=== PATIENT | female | born 1980 | race African-American/Black ===

== ENCOUNTER 2023-09-25 09:13 | Emergency (ER) | payer SELFPAY ==
[2023-09-25] MEDS ORDERED: Acetaminophen 500 MG TAB ONE (09:38)
[2023-09-25] MEDS ORDERED: Ondansetron ODT 4 MG TAB ONE (09:39)
[2023-09-25] MEDS ORDERED: Ondansetron PF 4 MG/2 ML Vial ONE (10:03)
[2023-09-25] MEDS ORDERED: Ketorolac Tromethamine 30 MG (1 mL) VIAL ONE (10:03)
[2023-09-25] MEDS ORDERED: Morphine 4 MG/ML VIAL ONE (10:03)
[2023-09-25 11:17] LABS: Bacteria/HPF 3+ HPF (None Seen); Bilirubin Negative (Negative); Blood, Urine 1+ (Negative); Clarity Turbid (Clear); Glucose, Urine (Dipstick) Normal (Negative); Ketone, Urine 60 mg/dL (Negative); Lactic Acid 1.1 mmol/L (0.5-2.2); Leukocyte 75 Leu/uL (Negative); Nitrite 2+ (Negative); Protein, Urine (Dipstick) 30 mg/dL (Neg-Trace); Specific Gravity, Urine 1.024 (1.002-1.036); Squamous Epithelial 21-50 HPF (0-3); Urobilinogen 3 mg/dL (Less than 2); pH, Urine 6.5 (5.0-9.0)
[2023-09-25 11:18] LABS: Pregnancy Test - Urine (BHCG) Negative (Negative); Pregu Control Background? CLEAR/WHITE (CLR/WHITE); Pregu Control Bar Appear? YES (CONTROL BAR); Specific Gravity 1.024 (1.002-1.036)
[2023-09-25 11:21] LABS: ALT (SGPT) 11 U/L (8-55); AST (SGOT) 15 U/L (5-34); Albumin 3.5 g/dL (3.5-5.0); Alkaline Phosphatase 92 U/L (40-110); Anion Gap 13 mmol/L (10-20); BUN (Urea Nitrogen) 4 mg/dL (7.0-18.7); Bilirubin, Total 0.4 mg/dL (0.2-1.2); Calc. Creatinine Clearance 0 mL/min (70-130); Calcium 8.8 mg/dL (7.8-10.44); Carbon Dioxide 23 mmol/L (22-29); Chloride 103 mmol/L (98-107); Estimated GFR 97; Globulin 3.5 g/dL (2.4-3.5); Glucose 88 mg/dL (70-105); Lipase 7 U/L (8-78); Sodium 136 mmol/L (136-145)
[2023-09-25 11:47] LABS: Influenza A by NAA Not Detected (NotDetected); Influenza B by NAA Not Detected (NotDetected); SARS-CoV-2 NAA Rapid Test Not Detected (NotDetected)
[2023-09-25] MEDS ORDERED: Potassium Chloride 20 MEQ TAB ONE (13:19)
[2023-09-25 15:08] LABS: Anisocytosis SLIGHT = 6-15 cells HPF (0-5); Band 6 % (5-11); Burr Cells SLIGHT = 2-5 cells HPF (0-1); Hypochromia SLIGHT = 6-15 cells HPF (0-5); Lymphocytes 6 % (21-51); Macrocytosis SLIGHT = 6-15 cells HPF (0-5); Monocytes 2 % (0-10); Neutrophil 86 % (42-75); Nucleated RBC (Manual Ct) 1 % (0); Platelet Adequacy Comment Platelets Normal; Polychromasia MODERATE = 3-4 cells HPF (0-2)
[2023-09-25 15:14] LABS: Hematocrit 30.1 % (36.0-47.0); Hemoglobin 8.8 g/dL (12.0-16.0); Mean Corpuscular HGB CONC 29.2 g/dL (32.0-36.0); Mean Corpuscular Hemoglobin 20.4 pg (27.0-31.0); Mean Corpuscular Volume 69.8 fL (78.0-98.0); Mean Platelet Volume 10.7 fL (7.4-10.4); Platelet Count 376 10x3/uL (130-400); RBC Distribution Width 20.3 % (11.5-14.5); Red Blood Cell (RBC) Count 4.31 mill/uL (4.20-5.40)
[2023-09-25] MEDS ORDERED: Iopamidol-370 76% 500 ML MDV (1 ML CHARGE) ONE (15:46)
== END 2023-09-25 13:44 | disposition home or self-care (01) ==
LOC: ERS 09:13
DX: N39.0 Urinary tract infection, site not specified (principal); E87.6 Hypokalemia; Z87.891 Personal history of nicotine dependence
CPT/HCPCS: 71045; 74177; 80053; 81001; 81025; 83605; 83690; 85025; 96374; 96375; J1885; J2270; J2405; Q0162; Q9967

== ENCOUNTER 2023-09-26 01:41 | Inpatient (IN) | payer SELFPAY ==
[2023-09-26] MEDS ORDERED: Acetaminophen 500 MG TAB ONE (01:52)
[2023-09-26] MEDS ORDERED: Ondansetron PF 4 MG/2 ML Vial ONE (01:52)
[2023-09-26 03:44] LABS: #Basophils Less than 0.03 10x3/uL (0.0-0.2); #Eosinphils Less than 0.03 10x3/uL (0.0-0.7); %Basophils 0.3 % (0.0-1.0); %Lymphocytes 4.6 % (21.0-51.0); %Neutrophils 88.8 % (42.0-75.0); Hematocrit 30.1 % (36.0-47.0); Hemoglobin 8.4 g/dL (12.0-16.0); Mean Corpuscular HGB CONC 27.9 g/dL (32.0-36.0); Mean Corpuscular Hemoglobin 19.6 pg (27.0-31.0); Mean Corpuscular Volume 70.2 fL (78.0-98.0); Mean Platelet Volume 10.1 fL (7.4-10.4); Platelet Count 318 10x3/uL (130-400); RBC Distribution Width 20.9 % (11.5-14.5); Red Blood Cell (RBC) Count 4.29 mill/uL (4.20-5.40)
[2023-09-26] MEDS ORDERED: cefTRIAXone (ROCEPHIN) 2 GM VIAL ONE (03:46)
[2023-09-26] MEDS ORDERED: Sodium Chloride 0.9% 100 ML ONE (03:46)
[2023-09-26 03:48] LABS: ALT (SGPT) 12 U/L (8-55); AST (SGOT) 21 U/L (5-34); Albumin 3.2 g/dL (3.5-5.0); Alkaline Phosphatase 85 U/L (40-110); Anion Gap 13 mmol/L (10-20); BUN (Urea Nitrogen) 4 mg/dL (7.0-18.7); Bilirubin, Total 0.4 mg/dL (0.2-1.2); Calc. Creatinine Clearance 0 mL/min (70-130); Calcium 8.2 mg/dL (7.8-10.44); Carbon Dioxide 18 mmol/L (22-29); Chloride 108 mmol/L (98-107); Estimated GFR 98; Globulin 3.1 g/dL (2.4-3.5); Glucose 112 mg/dL (70-105); Potassium 2.8 mmol/L (3.5-5.1); Protein, Total 6.3 g/dL (6.0-8.3); Sodium 136 mmol/L (136-145)
[2023-09-26] MEDS ORDERED: Potassium Bicarbonate/Cit Ac 20 MEQ TAB ONE ×2 (05:00→05:35)
[2023-09-26] MEDS ORDERED: NS 0.9% w/ 20 MEQ KCL 1,000 ML ONE (05:18)
[2023-09-26 05:32] LABS: Magnesium 1.7 mg/dL (1.6-2.6)
[2023-09-26 06:06] LABS: Bilirubin Negative (Negative); Blood, Urine Negative (Negative); CAUTI Indications for Culture Alt mental st,lethar; Clarity Clear (Clear); Glucose, Urine (Dipstick) Normal (Negative); Ketone, Urine 60 mg/dL (Negative); Leukocyte Negative Leu/uL (Negative); Nitrite Negative (Negative); Protein, Urine (Dipstick) Negative (Neg-Trace); RBC/HPF 0-3 HPF (0-3); Specific Gravity, Urine 1.014 (1.002-1.036); Urobilinogen Normal mg/dL (Less than 2); pH, Urine 6.5 (5.0-9.0)
[2023-09-26 06:09] LABS: Bacteria/HPF 1+ HPF (None Seen); Urine Culture Reflex No No
[2023-09-26 06:10] VITALS: BMI 29.4
[2023-09-26 08:42] LABS: Iron 8 ug/dL (50-170); Iron Binding Capacity, Total 343 mcg/dL (265-497)
[2023-09-26] MEDS: Acetaminophen 325 MG TAB PO PRN (08:51)
[2023-09-26] MEDS: Famotidine 20 MG TAB PO SCH (08:52)
[2023-09-26] MEDS: Ketorolac Tromethamine 30 MG (1 mL) VIAL IVP PRN (08:52)
[2023-09-26] MEDS: Enoxaparin 40 MG (0.4 mL) SYRINGE SC SCH (08:52)
[2023-09-26] MEDS: Ondansetron PF 4 MG/2 ML Vial IVP PRN (08:59)
[2023-09-26] MEDS: Famotidine/PF 20 mg/2ml Vial SLOW IVP SCH (09:51)
[2023-09-26] MEDS: Aspirin/APAP/Caffeine Tab (Excedrin Migraine) PO PRN (19:03)
[2023-09-26] MEDS: Morphine 4 MG/ML VIAL SLOW IVP SCH (19:46)
[2023-09-26] MEDS: Promethazine HCl 25 MG in Sodium Chloride 0.9% 50 ML IVPB SCH (20:37)
[2023-09-27] MEDS: Morphine 4 MG/ML VIAL SLOW IVP PRN (02:42)
[2023-09-27] MEDS: cefTRIAXone\\ROCEPHIN 1 GM in Sodium Chloride 0.9% 100 ML IVPB SCH (03:41)
[2023-09-27] MEDS: Promethazine HCl 12.5 MG in Sodium Chloride 0.9% 50 ML IVPB SCH ×2 (07:04→21:50)
[2023-09-27 07:13] LABS: #Basophils 0.03 10x3/uL (0.0-0.2); #Eosinphils Less than 0.03 10x3/uL (0.0-0.7); %Basophils 0.6 % (0.0-1.0); %Lymphocytes 7.2 % (21.0-51.0); %Monocytes 3.7 % (0.0-10.0); %Neutrophils 87.9 % (42.0-75.0); Hematocrit 27.4 % (36.0-47.0); Hemoglobin 7.8 g/dL (12.0-16.0); Mean Corpuscular HGB CONC 28.5 g/dL (32.0-36.0); Mean Corpuscular Hemoglobin 19.5 pg (27.0-31.0); Mean Corpuscular Volume 68.7 fL (78.0-98.0); Platelet Count 280 10x3/uL (130-400); Red Blood Cell (RBC) Count 3.99 mill/uL (4.20-5.40)
[2023-09-27] MEDS ORDERED: VANCOMYCIN IVPB PRN (07:25)
[2023-09-27 07:37] LABS: Anion Gap 11 mmol/L (10-20); BUN (Urea Nitrogen) 6 mg/dL (7.0-18.7); Calc. Creatinine Clearance 100 mL/min (70-130); Calcium 7.9 mg/dL (7.8-10.44); Carbon Dioxide 18 mmol/L (22-29); Chloride 107 mmol/L (98-107); Estimated GFR 88; Glucose 117 mg/dL (70-105); Potassium 2.9 mmol/L (3.5-5.1); Sodium 133 mmol/L (136-145)
[2023-09-27] MEDS: Piperacillin/Tazobactam 3.375 GM in Sodium Chloride 0.9% 100 ML IVPB SCH ×2 (08:29→14:29)
[2023-09-27] MEDS: Ferrous Sulfate 325 MG TAB PO SCH (08:31)
[2023-09-27] MEDS: Vancomycin (BATCH) 1.75 GM in Premix 1 BAG IVPB SCH (09:44)
[2023-09-27] MEDS ORDERED: Potassium Chloride 20 MEQ TAB PO SCH (10:00)
[2023-09-27] MEDS: Ketorolac Tromethamine 30 MG (1 mL) VIAL IVP SCH (12:52)
[2023-09-27] MEDS: Potassium Bicarbonate/Cit Ac 20 MEQ TAB PO SCH (12:52)
[2023-09-27] MEDS: Sodium Chloride 0.9% 1,000 ML IV SCH (12:53)
[2023-09-27 20:03] LABS: Potassium 2.3 mmol/L (3.5-5.1)
[2023-09-27] MEDS: Vancomycin 1 GM in Premix 1 BAG IVPB SCH (20:05)
[2023-09-27] MEDS: Promethazine 25 MG TAB PO SCH (21:52)
[2023-09-27] MEDS ORDERED: Potassium Chloride 20 MEQ in Premix 1 BAG IVPB SCH (22:00)
[2023-09-27] MEDS ORDERED: Potassium Chloride 40 MEQ in Premix 1 BAG IVPB SCH (23:00)
[2023-09-27] MEDS: Potassium Chloride 20 MEQ in Premix 1 BAG IVPB SCH (23:41)
[2023-09-28 07:12] LABS: Vancomycin, Random 7.6 ug/mL (See Comment)
[2023-09-28 07:31] LABS: ALT (SGPT) 27 U/L (8-55); AST (SGOT) 48 U/L (5-34); Albumin 2.8 g/dL (3.5-5.0); Alkaline Phosphatase 102 U/L (40-110); Anion Gap 15 mmol/L (10-20); BUN (Urea Nitrogen) 4 mg/dL (7.0-18.7); Bilirubin, Total 0.4 mg/dL (0.2-1.2); Calc. Creatinine Clearance 105 mL/min (70-130); Calcium 7.9 mg/dL (7.8-10.44); Carbon Dioxide 17 mmol/L (22-29); Chloride 112 mmol/L (98-107); Estimated GFR 94; Globulin 2.7 g/dL (2.4-3.5); Glucose 98 mg/dL (70-105); Magnesium 1.5 mg/dL (1.6-2.6); Potassium 3.6 mmol/L (3.5-5.1); Protein, Total 5.5 g/dL (6.0-8.3); Sodium 140 mmol/L (136-145)
[2023-09-28 07:36] LABS: Hematocrit 29.5 % (36.0-47.0); Hemoglobin 8.3 g/dL (12.0-16.0); Mean Corpuscular HGB CONC 28.1 g/dL (32.0-36.0); Mean Corpuscular Hemoglobin 19.4 pg (27.0-31.0); Mean Corpuscular Volume 68.9 fL (78.0-98.0); Platelet Count 247 10x3/uL (130-400); RBC Distribution Width 21.3 % (11.5-14.5); Red Blood Cell (RBC) Count 4.28 mill/uL (4.20-5.40)
[2023-09-28 08:20] LABS: Band 33 % (5-11); Burr Cells SLIGHT = 2-5 cells HPF (0-1); Giant Platelets 1.9 % (0-5); Large Platelets 14.6 % (0-5); Lymphocytes 14 % (21-51); Monocytes 1 % (0-10); Neutrophil 47 % (42-75); Platelet Adequacy Comment Platelets Normal; Poikilocytosis SLIGHT = 6-15 cells HPF (0-5); Polychromasia SLIGHT = 2-3 cells HPF (0-2); Target Cells SLIGHT = 2-5 cells HPF (0-1)
[2023-09-28] MEDS: Vancomycin (BATCH) 1.5 GM in Premix 1 BAG IVPB SCH (10:19)
[2023-09-28] MEDS: Magnesium 2 GM/50 ML(in water) 2 GM in Premix 1 BAG IVPB SCH (12:54)
[2023-09-28] MEDS: Ketorolac Tromethamine 30 MG (1 mL) VIAL IVP PRN (12:57)
[2023-09-28] MEDS: Acetaminophen 650 MG Suppository PR PRN (17:17)
[2023-09-28] MEDS: Ondansetron ODT 4 MG TAB PO PRN (19:29)
[2023-09-28] MEDS: Prochlorperazine Edisylate 10 MG in Sodium Chloride 0.9% 50 ML IVPB PRN (20:06)
[2023-09-28] MEDS: Doxycycline 100 MG in Sodium Chloride 0.9% 100 ML IVPB SCH (21:27)
[2023-09-29 05:26] LABS: Chlam.trachomatis by PCR,Urine Not Detected (NotDetected); GC N.gonorrhoeae PCR,UrineVOID Not Detected (NotDetected)
[2023-09-29 11:48] LABS: Hematocrit 29.4 % (36.0-47.0); Hemoglobin 8.5 g/dL (12.0-16.0); Mean Corpuscular HGB CONC 28.9 g/dL (32.0-36.0); Mean Corpuscular Hemoglobin 19.8 pg (27.0-31.0); Mean Corpuscular Volume 68.4 fL (78.0-98.0); Platelet Count 201 10x3/uL (130-400); RBC Distribution Width 21.7 % (11.5-14.5)
[2023-09-29 12:06] LABS: Anion Gap 12 mmol/L (10-20); BUN (Urea Nitrogen) 5 mg/dL (7.0-18.7); Calc. Creatinine Clearance 98 mL/min (70-130); Calcium 7.9 mg/dL (7.8-10.44); Carbon Dioxide 21 mmol/L (22-29); Chloride 108 mmol/L (98-107); Estimated GFR 87; Glucose 93 mg/dL (70-105); Potassium 3.1 mmol/L (3.5-5.1); Sodium 138 mmol/L (136-145)
[2023-09-29 12:12] LABS: Anisocytosis SLIGHT = 6-15 cells HPF (0-5); Band 7 % (5-11); Burr Cells SLIGHT = 2-5 cells HPF (0-1); Large Platelets 11.8 % (0-5); Lymphocytes 10 % (21-51); Microcytosis MODERATE=15-30 cells HPF (0-5); Monocytes 1 % (0-10); Neutrophil 81 % (42-75); Ovalocytes SLIGHT = 2-5 cells HPF (0-1); Platelet Adequacy Comment Platelets Normal; Polychromasia SLIGHT = 2-3 cells HPF (0-2); Schistocytes SLIGHT = 2-5 cells HPF (0-1); Target Cells SLIGHT = 2-5 cells HPF (0-1); Vacuoles SLIGHT
[2023-09-29 12:28] LABS: HIV (1/2) Antibody/Antigen NONREACTIVE (NonReactive); HIV 1/2 INDEX 0.05 S/CO (<1.00); Thyroid Stimulating Hormone 1.0714 uIU/mL (0.35-4.94)
[2023-09-29 15:57] LABS: Campy jejuni + coli by PCR Negative (Negative); STEC Shiga Toxin 1+2 Negative (Negative); Salmonella spp. by PCR Negative (Negative); Shigella spp + EIEC by PCR Negative (Negative)
[2023-09-29] MEDS: NS 0.9% w/ 40 MEQ KCL 1,000 ML IV SCH (16:33)
[2023-09-29] MEDS: Magnesium 2 GM/50 ML(in water) 2 GM in Premix 1 BAG IVPB SCH (16:33)
[2023-09-29] MEDS: Albuterol 2.5 MG (3 mL) NEB NEB PRN (19:30)
[2023-09-29] MEDS: Budesonide 0.5 MG/2 ML NEB INH SCH (19:32)
[2023-09-30] MEDS: Benzonatate 100 MG CAP PO PRN (03:22)
[2023-09-30] MEDS: GUAIFENESIN SF SOLN 200 MG/10 ML UDCUP PO PRN (05:31)
[2023-09-30 06:12] LABS: #Basophils Less than 0.03 10x3/uL (0.0-0.2); #Eosinphils Less than 0.03 10x3/uL (0.0-0.7); %Basophils 0.2 % (0.0-1.0); %Neutrophils 74.1 % (42.0-75.0); Hematocrit 27.6 % (36.0-47.0); Hemoglobin 8.1 g/dL (12.0-16.0); Mean Corpuscular HGB CONC 29.3 g/dL (32.0-36.0); Mean Corpuscular Hemoglobin 19.3 pg (27.0-31.0); Mean Corpuscular Volume 65.9 fL (78.0-98.0); Platelet Count 214 10x3/uL (130-400); RBC Distribution Width 22.3 % (11.5-14.5); Red Blood Cell (RBC) Count 4.19 mill/uL (4.20-5.40)
[2023-09-30 06:35] LABS: ALT (SGPT) 45 U/L (8-55); AST (SGOT) 56 U/L (5-34); Albumin 2.2 g/dL (3.5-5.0); Alkaline Phosphatase 118 U/L (40-110); Anion Gap 12 mmol/L (10-20); BUN (Urea Nitrogen) 6 mg/dL (7.0-18.7); Bilirubin, Total 0.3 mg/dL (0.2-1.2); Calc. Creatinine Clearance 105 mL/min (70-130); Calcium 7.4 mg/dL (7.8-10.44); Carbon Dioxide 20 mmol/L (22-29); Chloride 110 mmol/L (98-107); Estimated GFR 94; Globulin 3.1 g/dL (2.4-3.5); Glucose 103 mg/dL (70-105); Potassium 3.2 mmol/L (3.5-5.1); Protein, Total 5.3 g/dL (6.0-8.3); Sodium 139 mmol/L (136-145)
[2023-09-30] MEDS ORDERED: guaiFENesin/Codeine 200 mg/20 mg 10 ml Cup PO PRN (16:05)
[2023-09-30] MEDS: Albuterol 2.5 MG (3 mL) NEB NEB SCH (19:02)
[2023-09-30] MEDS: methylPREDNISolone Sod Succ 40 MG VIAL IVP SCH (20:17)
[2023-09-30] MEDS: ALPRAZolam 0.25 MG TAB PO PRN (21:58)
[2023-10-01 04:45] LABS: Legionella Urinary Ag Negative (Negative)
[2023-10-01 06:27] LABS: #Basophils Less than 0.03 10x3/uL (0.0-0.2); #Eosinphils Less than 0.03 10x3/uL (0.0-0.7); %Basophils 0.1 % (0.0-1.0); %Lymphocytes 21.3 % (21.0-51.0); %Monocytes 1.7 % (0.0-10.0); %Neutrophils 76.1 % (42.0-75.0); Hematocrit 28.3 % (36.0-47.0); Hemoglobin 8.2 g/dL (12.0-16.0); Mean Corpuscular Hemoglobin 19.4 pg (27.0-31.0); Mean Corpuscular Volume 66.9 fL (78.0-98.0); Platelet Count 216 10x3/uL (130-400); RBC Distribution Width 22.5 % (11.5-14.5); Red Blood Cell (RBC) Count 4.23 mill/uL (4.20-5.40)
[2023-10-01 06:43] LABS: Anion Gap 14 mmol/L (10-20); BUN (Urea Nitrogen) 7 mg/dL (7.0-18.7); Calc. Creatinine Clearance 116 mL/min (70-130); Calcium 8.3 mg/dL (7.8-10.44); Carbon Dioxide 20 mmol/L (22-29); Chloride 111 mmol/L (98-107); Estimated GFR 106; Glucose 151 mg/dL (70-105); Potassium 3.7 mmol/L (3.5-5.1); Sodium 141 mmol/L (136-145)
[2023-10-01 06:54] LABS: CRP,High Sensitivity (Inhouse) 23.11 mg/dL (< or = 0.5)
[2023-10-01 13:14] LABS: ANA Symphony (Qualitative) Negative (Negative); ANA Symphony (Quantitative) 0.1 Ratio (< 0.7 Negative); dsDNA IgG Antibody 0.7 IU/mL (<10 Negative)
[2023-10-01] MEDS: cefTRIAXone\\ROCEPHIN 2 GM in Sodium Chloride 0.9% 100 ML IVPB SCH (15:29)
[2023-10-02] MEDS: Doxycycline 100 MG CAP PO SCH (08:23)
[2023-10-02] MEDS: Pantoprazole DR 40 MG TAB PO SCH (08:23)
[2023-10-02] MEDS: predniSONE 20 MG TAB PO SCH (08:23)
[2023-10-02 08:58] LABS: % Infected Cells W/Parasite No parasites seen
[2023-10-02 12:23] VITALS: BP 149/92; TEMP 98
== END 2023-10-02 15:15 | disposition home or self-care (01) | DRG 194 ==
LOC: ERS 01:41 → T4-B 05:53
PROVIDERS: ADMIT Internal Medicine; ATTEND Family Medicine
DX: J18.9 Pneumonia, unspecified organism (principal); J45.901 Unspecified asthma with (acute) exacerbation; N39.0 Urinary tract infection, site not specified; N92.0 Excessive and frequent menstruation with regular cycle; K44.9 Diaphragmatic hernia without obstruction or gangrene; D50.9 Iron deficiency anemia, unspecified; E87.6 Hypokalemia; E83.42 Hypomagnesemia; N83.209 Unspecified ovarian cyst, unspecified side; Z98.891 History of uterine scar from previous surgery
CPT/HCPCS: 36415; 36416; 71045; 76705; 76856; 80048; 80053; 80202; 81001; 82728; 83540; 83550; 83605; 83735; 84443; 85025; 85060; 86038; 86141; 86225; 86713; 87040; 87086; 87207; 87389; 87491; 87505; 87591; 87633; 87899; 94640; 96365; 96367; 96375; J0696; J0780; J1650; J1885; J2270; J2405; J2543; J2550; J3370; J3370-JW; J3475; J3480; J3490; J7050; J7512; J7611; J7626; Q0162; S0028